=== PATIENT | female | born 1950 | race Hispanic/Latino ===

== ENCOUNTER 2020-01-23 12:01 | Emergency (ER) | payer OTHER ==
[2020-01-23] MEDS ORDERED: ONDANSETRON HCL 4 MG/2 ML VIAL ONE (13:16)
[2020-01-23] MEDS ORDERED: MORPHINE SULFATE 4 MG/1ML SYG ONE (13:17)
== END 2020-01-23 14:55 | disposition home or self-care (01) ==
LOC: EDH 12:01
DX: S00.03XA Contusion of scalp, initial encounter (principal); M54.2 Cervicalgia; I10 Essential (primary) hypertension; K21.9 Gastro-esophageal reflux disease without esophagitis; J45.909 Unspecified asthma, uncomplicated; Z91.041 Radiographic dye allergy status; Z90.710 Acquired absence of both cervix and uterus; W01.0XXA Fall on same level from slipping, tripping and stumbling without subsequent striking against object, initial encounter; Y93.89 Activity, other specified; Y92.89 Other specified places as the place of occurrence of the external cause; Y99.8 Other external cause status
CPT/HCPCS: 70450; 72125; 93005; 96374; 96375; 99284; J2270; J2405

== ENCOUNTER 2022-04-09 08:31 | Day surgery (SDC) | payer MEDICARE, OTHER ==
[2022-04-03 13:17] LABS: BASOPHILS % (AUTO) 0.3 % (0.0-5.0); EOSINOPHILS % (AUTO) 0.4 % (0.0-8.0); HEMATOCRIT 37.8 % (36-48); MEAN CORPUSCULAR HEMOGLOBIN 30.3 pg (27.0-33.0); MEAN CORPUSCULAR VOLUME 94.5 fL (79-99); MONOCYTES % (AUTO) 8.2 % (3.0-13.0); NEUTROPHILS % (AUTO) 61.2 % (40.0-77.0); PLATELET COUNT (AUTO) 267 K/uL (130-400); RED CELL DISTRIBUTION WIDTH 12.9 % (11.0-15.5); WHITE BLOOD COUNT (AUTO) 14.2 K/uL (4.8-10.8)
[2022-04-03 13:28] LABS: CREATININE 1.3 mg/dL (0.5-1.5); POTASSIUM 4.9 mmol/L (3.5-5.1)
[2022-04-03 14:53] LABS: APPEARANCE,URINE Clear (CLEAR); BILIRUBIN,URINE Negative (NEGATIVE); COLOR,URINE Yellow (YELLOW); GLUCOSE, URINE (UA) Negative (NEGATIVE); KETONES,URINE Negative (NEGATIVE); LEUKOCYTE ESTERASE ,URINE Negative (NEGATIVE); NITRATE,URINE Negative (NEGATIVE); OCCULT BLOOD,URINE Negative (NEGATIVE); PROTEIN,URINE Negative (NEGATIVE); UROBILINOGEN,URINE 0.2 mg/dL (0.2-1.0)
[2022-04-08 10:06] VITALS: BP 140/71
[2022-04-09] VITALS (16 sets, daily range): BP systolic 150–171; BP diastolic 61–74
[~2022-04-09] VITALS: Ht 162.6 cm; Wt 95.3 kg
[~2022-04-09 08:31] MED LIST: BIOT5000 PO; BUDE10.7 IH; CHOL500045 PO; ESCI-8 PO; FLUT16H NASAL; GABA300C PO; HYDR100T27 PO; HYDR12.54 PO; LEVO25CA4 PO; LOSA50TA64 PO; MELA10TA3 PO; METO-409 PO; MONT-39 PO; NITR100C4 PO; OMEP20CA12 PO; ROSU10TA28 PO; TEZSPIRE INJ; TIZA4CAP8 PO; albuterol IH
[2022-04-09] MEDS ORDERED: 0.9%NACL 1000ML 1,000 ML IV ONE (09:31)
[2022-04-09] MEDS: CEFTRIAXONE 1G VIAL IVP ONE ×2 (09:32→11:30)
[2022-04-09] MEDS ORDERED: BOTULINUM TOXIN TYPE A 100 UNITS/VIAL INJ SCH (10:00)
[2022-04-09] MEDS ORDERED: ALBUTEROL INHALER 90MCG/INH IH ONE (11:05)
[2022-04-09] MEDS ORDERED: 0.9%NACL 10ML VIAL ONE (11:13)
[2022-04-09] MEDS ORDERED: SUCCINYLCHOLINE 200MG/10ML SYR ONE ×2 (11:22→11:23)
[2022-04-09] MEDS ORDERED: LIDOCAINE PF 100MG/5ML (2%) SYRINGE 5ML ONE ×2 (11:22→11:23)
[2022-04-09] MEDS ORDERED: MIDAZOLAM HCL 1 MG/ML 2ML VIAL ONE (11:22)
[2022-04-09] MEDS ORDERED: GLYCOPYRROLATE 1 MG/5 ML SYRINGE ONE (11:22)
[2022-04-09] MEDS ORDERED: NEOSTIGMINE 5MG/5ML SYR IV ONE (11:22)
[2022-04-09] MEDS ORDERED: ONDANSETRON 4MG INJ ONE (11:22)
[2022-04-09] MEDS ORDERED: DEXAMETHASONE SOD PHOSPHATE 10MG/ML 1ML VIAL ONE (11:22)
[2022-04-09] MEDS ORDERED: PROPOFOL 10 MG/ML 20ML VIAL IV ONE (11:22)
[2022-04-09] MEDS ORDERED: ROCURONIUM 10MG/1ML SYR 10 MG/ML ML ONE (11:23)
[2022-04-09] MEDS ORDERED: FENTANYL CITRATE PF 50 MCG/1 ML 2ML VIAL ONE (11:23)
[2022-04-09] MEDS ORDERED: ATROPINE 1MG SYG IVP ONE (11:43)
[2022-04-09] MEDS ORDERED: SUGAMMADEX SODIUM 200 MG/2 ML VIAL IV ONE (12:04)
== END 2022-04-09 13:50 | disposition home or self-care (01) ==
LOC: DAH 08:31
PROVIDERS: ATTEND Urology
DX: N39.41 Urge incontinence (principal); I10 Essential (primary) hypertension; E11.9 Type 2 diabetes mellitus without complications; K21.9 Gastro-esophageal reflux disease without esophagitis; J45.909 Unspecified asthma, uncomplicated; Z90.710 Acquired absence of both cervix and uterus; Z79.01 Long term (current) use of anticoagulants; Z79.899 Other long term (current) drug therapy; Z98.890 Other specified postprocedural states
CPT/HCPCS: 36415; 52287; 71045; 80048; 81003; 82948; 85025; 87088; 87635; 93005; A4215; A4221; A4222; A4223; A4358; A4600; A4663; A6260; C1769; C9803; J0330 ×2; J0461; J0585; J1100; J2001 ×2; J2250; J2405; J2704; J2710; J3010; J3490; J7030; J7120

== ENCOUNTER → 2022-07-02 | Outpatient (CLI) | payer MEDICARE | END | disposition home or self-care (01) | LOC: SHCH 12:56 | PROVIDERS: ATTEND Internal Medicine Cardiovascular Disease | DX: I36.1 Nonrheumatic tricuspid (valve) insufficiency (principal); I51.7 Cardiomegaly | CPT/HCPCS: 93306 ==

== ENCOUNTER → 2022-07-14 | Outpatient (CLI) | payer MEDICARE, OTHER ==
[~2022-07-14] MED LIST changes: +REGADENOSON 0.4 MG/5 ML PF SYG IVP SCH
== END | disposition home or self-care (01) ==
LOC: SHCH 08:57
PROVIDERS: ATTEND Internal Medicine Cardiovascular Disease
DX: R06.02 Shortness of breath (principal); I10 Essential (primary) hypertension; E78.5 Hyperlipidemia, unspecified; Z79.899 Other long term (current) drug therapy
CPT/HCPCS: 78452; 96374; 93017; J2785; A9500 ×2

== ENCOUNTER 2022-11-12 07:06 | Day surgery (SDC) | payer MEDICARE, OTHER ==
[2022-11-09 11:33] LABS: APPEARANCE,URINE CLEAR (CLEAR); BILIRUBIN,URINE NEGATIVE (NEGATIVE); COLOR,URINE COLORLESS (YELLOW); GLUCOSE, URINE (UA) NEGATIVE (NEGATIVE); KETONES,URINE NEGATIVE (NEGATIVE); LEUKOCYTE ESTERASE ,URINE NEGATIVE Leu/uL (NEGATIVE); NITRATE,URINE NEGATIVE (NEGATIVE); OCCULT BLOOD,URINE NEGATIVE (NEGATIVE); PH,URINE 5.5 (5.0-8.0); PROTEIN,URINE NEGATIVE (NEGATIVE); UROBILINOGEN,URINE 0.2 mg/dL (0.2-1.0)
[2022-11-09 11:34] LABS: BASOPHILS % (AUTO) 0.3 % (0.0-5.0); EOSINOPHILS % (AUTO) 0.5 % (0.0-8.0); HEMATOCRIT 36.8 % (36-48); LYMPHOCYTES % (AUTO) 33.3 % (21.0-51.0); MEAN CORPUSCULAR HEMOGLOBIN 30.8 pg (27.0-33.0); MEAN CORPUSCULAR HGB CONC 33.2 g/dL (32.0-36.0); MEAN CORPUSCULAR VOLUME 92.9 fL (79-99); MONOCYTES % (AUTO) 9.2 % (3.0-13.0); NEUTROPHILS % (AUTO) 55.9 % (40.0-77.0); PLATELET COUNT (AUTO) 311 K/uL (130-400); RED BLOOD CELL COUNT(AUTO) 3.96 MIL/uL (4.00-5.50); RED CELL DISTRIBUTION WIDTH 12.9 % (11.0-15.5); WHITE BLOOD COUNT (AUTO) 10.7 K/uL (4.8-10.8)
[2022-11-09 11:42] LABS: CREATININE 1.6 mg/dL (0.5-1.5); POTASSIUM 3.9 mmol/L (3.5-5.1)
[2022-11-11 09:35] VITALS: BP 132/67
[2022-11-12] VITALS (18 sets, daily range): BP systolic 127–162; BP diastolic 63–77
[~2022-11-12] VITALS: Ht 162.6 cm; Wt 91.7 kg
[~2022-11-12 07:06] MED LIST changes: +BOTULINUM TOXIN TYPE A 100 UNITS/VIAL INJ SCH; +CEFTRIAXONE 1G VIAL IVPB SCH; +CETI-89 PO; -CHOL500045 PO; +CRANBERRY PO; +DEXL60CA3 PO; -FLUT16H NASAL; -GABA300C PO; +LOSA100T58 PO; -LOSA50TA64 PO; +MAGN400T40 PO; -OMEP20CA12 PO; -REGADENOSON 0.4 MG/5 ML PF SYG IVP SCH; -ROSU10TA28 PO; +ROSU20TA31 PO; -TEZSPIRE INJ; +VITAMIN D PO
[2022-11-12] MEDS ORDERED: 0.9%NACL 1000ML 1,000 ML IV ONE (07:26)
[2022-11-12] MEDS ORDERED: NEOSTIGMINE 5MG/5ML SYR IV ONE (08:43)
[2022-11-12] MEDS ORDERED: ONDANSETRON 4MG INJ ONE (08:43)
[2022-11-12] MEDS ORDERED: LIDOCAINE PF 100MG/5ML (2%) SYRINGE 5ML ONE ×2 (08:43→08:45)
[2022-11-12] MEDS ORDERED: PROPOFOL 10 MG/ML 20ML VIAL IV ONE (08:43)
[2022-11-12] MEDS ORDERED: GLYCOPYRROLATE 1 MG/5 ML SYRINGE ONE (08:43)
[2022-11-12] MEDS ORDERED: SUCCINYLCHOLINE 200MG/10ML SYR ONE ×2 (08:43→08:46)
[2022-11-12] MEDS ORDERED: ROCURONIUM 10MG/1ML SYR 10 MG/ML ML ONE (08:44)
[2022-11-12] MEDS ORDERED: MIDAZOLAM HCL 1 MG/ML 2ML VIAL ONE (08:44)
[2022-11-12] MEDS ORDERED: FENTANYL CITRATE PF 50 MCG/1 ML 2ML VIAL ONE ×2 (08:44→09:11)
== END 2022-11-12 11:40 | disposition home or self-care (01) ==
LOC: DAH 07:06
PROVIDERS: ATTEND Urology
DX: N39.46 Mixed incontinence (principal); Z20.822 Contact with and (suspected) exposure to COVID-19; I10 Essential (primary) hypertension; E11.9 Type 2 diabetes mellitus without complications; J45.909 Unspecified asthma, uncomplicated; E66.01 Morbid (severe) obesity due to excess calories; Z79.899 Other long term (current) drug therapy; Z91.041 Radiographic dye allergy status
CPT/HCPCS: 80048; 85025; 87088; 87426; 81003; 36415; 93005; 52287; 82948 ×2; A4663; J7120; J3010 ×2; J0330 ×2; J3490; J2710; J7030; J2001 ×2; J0696; J2250; J2704; J2405; J0585; A4358; A4215 ×2; A4223; A4222; A4221; A4600

== ENCOUNTER → 2023-04-12 | Outpatient (CLI) | payer MEDICARE, OTHER ==
[~2023-04-12] MED LIST changes: -BOTULINUM TOXIN TYPE A 100 UNITS/VIAL INJ SCH; -CEFTRIAXONE 1G VIAL IVPB SCH; -LOSA100T58 PO; +LOSA100T59 PO; -ROSU20TA31 PO; +ROSU20TA73 PO
== END | disposition home or self-care (01) ==
LOC: RAH 12:35
PROVIDERS: ATTEND Family Medicine
DX: M48.061 Spinal stenosis, lumbar region without neurogenic claudication (principal); M48.02 Spinal stenosis, cervical region; M47.22 Other spondylosis with radiculopathy, cervical region; M47.26 Other spondylosis with radiculopathy, lumbar region; M89.48 Other hypertrophic osteoarthropathy, other site
CPT/HCPCS: 72141; 72148

== ENCOUNTER → 2024-02-15 | Outpatient (CLI) | payer MEDICARE, OTHER ==
[~2024-02-15] MED LIST changes: +ALBU6.7H14 IH; +BENZ200C53 PO; -BIOT5000 PO; +CARB-37 PO; -CETI-89 PO; -ESCI-8 PO; -HYDR100T27 PO; -HYDR12.54 PO; -LOSA100T59 PO; +LOSA50TA64 PO; +MACR100 PO; -MAGN400T40 PO; -METO-409 PO; -MONT-39 PO; -NITR100C4 PO; -ROSU20TA73 PO; +TEZE210P SQ; +TRAM50TA4 PO; -VITAMIN D PO; -albuterol IH
[2024-02-15] MEDS: REGADENOSON 0.4 MG/5 ML PF SYG IVP ONE (11:53)
== END | disposition home or self-care (01) ==
LOC: SHCH 08:43
PROVIDERS: ATTEND Internal Medicine Cardiovascular Disease
DX: R07.9 Chest pain, unspecified (principal); R05.9 Cough, unspecified; R11.0 Nausea; R42 Dizziness and giddiness; R11.10 Vomiting, unspecified
CPT/HCPCS: 78452; 96374; 93017; J2785; A9500 ×2

== ENCOUNTER 2024-07-06 07:05 | Day surgery (SDC) | payer MEDICARE, OTHER ==
[2024-06-30 12:43] LABS: BASOPHILS # (AUTO) 0.02 K/uL (0.00-0.20); BASOPHILS % (AUTO) 0.2 % (0.0-5.0); EOSINOPHILS # (AUTO) 0.03 K/uL (0.00-0.70); EOSINOPHILS % (AUTO) 0.2 % (0.0-8.0); HEMATOCRIT 38.7 % (36-48); IMMATURE GRANULOCYTE ABSOLUTE 0.05 K/uL (0-1); LYMPHOCYTES # (AUTO) 3.7 K/uL (1.0-4.8); LYMPHOCYTES % (AUTO) 28.5 % (21.0-51.0); MEAN CORPUSCULAR HEMOGLOBIN 30.6 pg (27.0-33.0); MEAN CORPUSCULAR HGB CONC 34.1 g/dL (32.0-36.0); MEAN CORPUSCULAR VOLUME 89.8 fL (79-99); MONOCYTES # (AUTO) 1.1 K/uL (0.1-1.0); MONOCYTES % (AUTO) 8.1 % (3.0-13.0); NEUTROPHILS # (AUTO) 8.2 K/uL (1.8-7.7); NEUTROPHILS % (AUTO) 62.6 % (40.0-77.0); PLATELET COUNT (AUTO) 289 K/uL (130-400); RED BLOOD CELL COUNT(AUTO) 4.31 MIL/uL (4.00-5.50); RED CELL DISTRIBUTION WIDTH 13.2 % (11.0-15.5); WHITE BLOOD COUNT (AUTO) 13.1 K/uL (4.8-10.8)
[2024-06-30 12:48] VITALS: BP 137/82; PULSE 64; RESP 18; TEMP 98.2
[2024-06-30 12:50] LABS: CREATININE 1.3 mg/dL (0.5-1.0); POTASSIUM 3.3 mmol/L (3.5-5.1)
[2024-06-30 12:59] LABS: APPEARANCE,URINE CLEAR (CLEAR); BILIRUBIN,URINE NEGATIVE (NEGATIVE); COLOR,URINE LIGHT-YELLOW (YELLOW); GLUCOSE, URINE (UA) NEGATIVE (NEGATIVE); KETONES,URINE NEGATIVE (NEGATIVE); LEUKOCYTE ESTERASE ,URINE NEGATIVE Leu/uL (NEGATIVE); NITRATE,URINE NEGATIVE (NEGATIVE); PROTEIN,URINE NEGATIVE (NEGATIVE); UROBILINOGEN,URINE 0.2 mg/dL (0.2-1.0)
[2024-06-30 13:01] LABS: ADD UA MICROSCOPIC YES
[2024-06-30 13:07] LABS: MUCUS,URINE RARE LPF (None Seen); SQUAMOUS EPITHELIAL CELL,UR RARE /HPF (0-2); TRANSITIONAL EPI CELLS,URINE RARE /HPF (None Seen)
[~2024-07-06] VITALS: Ht 162.6 cm; Wt 84.8 kg
[2024-07-06] VITALS (15 sets, daily range): BP systolic 100–169; BP diastolic 52–70; PULSE 50–68; RESP 15–18; TEMP 97.2–97.7
[~2024-07-06 07:05] MED LIST changes: -BENZ200C53 PO; +CETI-89 PO; -CRANBERRY PO; +ESCI-8 PO; +FLUT16H NASAL; +HYDR100T15 PO; +HYDR25TA PO; -LOSA50TA64 PO; -MACR100 PO; +MAGN500C4 PO; +METO-409 PO; +MONT-39 PO; +ROPI0.2535 PO; +ROSU20TA73 PO; +TIRZ2.5P SQ; -TIZA4CAP8 PO; -TRAM50TA4 PO
[2024-07-06] MEDS: cefTRIAXone 1G VIAL ONE (08:42)
[2024-07-06] MEDS: 0.9%NACL 1000ML 1,000 ML IV ONE (08:42)
[2024-07-06] MEDS ORDERED: SCOPOLAMINE HYDROBROMIDE 1 EACH ADH..PATCH TD ONE (08:49)
[2024-07-06] MEDS ORDERED: dexaMETHasone SOD PHOSPHATE 10MG/ML 1ML VIAL ONE (08:51)
[2024-07-06] MEDS ORDERED: LIDOCAINE HCL MPF 1% 5ML VIAL ONE (08:51)
[2024-07-06] MEDS ORDERED: MIDAZOLAM HCL 1 MG/ML 2ML VIAL ONE (08:52)
[2024-07-06] MEDS ORDERED: ondanSETRON 4MG INJ ONE (08:52)
[2024-07-06] MEDS ORDERED: proPOFol 10 MG/ML 20ML VIAL IV ONE (08:52)
[2024-07-06] MEDS ORDERED: rocuRONium bROMide 10MG/1ML 5ML VL ONE (08:52)
[2024-07-06] MEDS ORDERED: FENTanyl CITRate PF 50 MCG/1 ML 2ML VIAL ONE (08:52)
[2024-07-06] MEDS: BOTULINUM TOXIN TYPE A 100 UNITS/VIAL INJ ONE (09:16)
[2024-07-06] MEDS ORDERED: NEOSTIGMINE METHYLSULFATE 1MG/ML IV ONE (09:19)
[2024-07-06] MEDS ORDERED: GLYCOPYRROLATE 0.2 MG/ML 5 ML VIAL ONE (09:19)
[2024-07-06] MEDS ORDERED: SUGAMMADEX SODIUM 200 MG/2 ML VIAL IV ONE (09:37)
== END 2024-07-06 11:07 | disposition home or self-care (01) ==
LOC: DAH 07:05
PROVIDERS: ATTEND Urology
DX: N39.46 Mixed incontinence (principal); I10 Essential (primary) hypertension; E11.9 Type 2 diabetes mellitus without complications; K21.9 Gastro-esophageal reflux disease without esophagitis; J45.909 Unspecified asthma, uncomplicated; Z88.6 Allergy status to analgesic agent; Z88.8 Allergy status to other drugs, medicaments and biological substances
CPT/HCPCS: 36415; 71045; 80048; 81001; 82948; 85025; 87086; 93005; C1758; J0585; J0696; J1100; J2250; J2405; J2704; J2710; J3010; J3490; J7030; A4215; A4221; A4222; A4223; A4248; A4358; A4600; A4663; A6260

== ENCOUNTER → 2025-05-29 | Outpatient (CLI) | payer MEDICARE, OTHER ==
[~2025-05-29] MED LIST changes: -LEVO25CA4 PO; +LEVO25CA5 PO; -ROSU20TA73 PO; +ROSU20TA98 PO
--- NOTE | 2025-05-30 10:20 | HMCIMG ---
EXAM: MR Cervical Spine Without Intravenous Contrast. CLINICAL HISTORY: Pain. TECHNIQUE: Magnetic resonance images of the cervical spine in multiple planes. CONTRAST: None. COMPARISON: MRI dated 04/12/23. FINDINGS: The imaged posterior fossa is unremarkable. The craniocervical junction is intact. Normal lordotic curvature. Flowing ossifications noted anterior to the cervical spine, likely diffuse idiopathic skeletal hyperostosis. Multilevel spondylosis is evident by marginal osteophytes and facet joint arthropathy. Multilevel disc desiccation noted. Acute fractures of the C4, C5, and C6 vertebral bodies cause approximately 30-40% height loss. Acute fracture through the right pedicle and lamina of the C6 vertebra. Mild collection at the C5-C6 intervertebral disc space anteriorly. The cervical cord is in an anatomic location. No abnormal signal involves the cord. No extra-axial masses. Mild edema noted in the posterior paraspinal muscles. Level by level, disease is present as follows: C1-C2: Mild osteoarthritis. C2-C3: No disc bulge or herniation. No neural foraminal, lateral recess, or spinal canal stenosis. C3-C4: 2 mm disc osteophyte complex bulge and facet joint arthropathy causing mild indentation on the anterior thecal sac and mild bilateral foraminal narrowing. No lateral recess stenosis. C4-C5: 2 mm disc osteophyte complex bulge causing mild indentation on the anterior thecal sac. No neural foraminal or lateral recess stenosis. C5-C6: 2 mm disc osteophyte complex bulge causing mild indentation on the anterior thecal sac. No neural foraminal or lateral recess stenosis. C6-C7: No disc bulge or herniation. No neural foraminal, lateral recess, or spinal canal stenosis. C7-T1: No disc bulge or herniation. No neural foraminal, lateral recess, or spinal canal stenosis. IMPRESSION: Acute fractures of the C4, C5, and C6 vertebral bodies cause approximately 30-40% height loss. Acute fracture through the right pedicle and lamina of the C6 vertebra. New finding. Mild collection at the C5-C6 intervertebral disc space anteriorly. Possibly hematoma versus effusion. New finding. Flowing ossifications anterior to the cervical spine, likely diffuse idiopathic skeletal hyperostosis. Mild to moderate multilevel spondylosis. Stable. Mild osteoarthritis at the C1-C2 level. Stable. Mild indentation on the anterior thecal sac and mild bilateral foraminal narrowing at the C3-C4 level. Stable. Mild indentation on the anterior thecal sac at the C4-C5 and C5-C6 levels. Stable. /[place]
--- NOTE | 2025-05-30 10:20 | HMCIMG ---
EXAM: MR Thoracic Spine Without Intravenous Contrast. CLINICAL HISTORY: Pain. TECHNIQUE: Magnetic resonance images of the thoracic spine in multiple planes. CONTRAST: None. COMPARISON: None. FINDINGS: The cervicothoracic and thoracolumbar junction is intact. No acute fracture. Exaggerated thoracic kyphosis. Flowing ossifications noted anterior to the thoracic spine, likely diffuse idiopathic skeletal hyperostosis. Multilevel spondylosis is evident by marginal osteophytes. Multilevel disc desiccation noted. Normal vertebral body and disc heights. Normal marrow signal of the vertebrae. The thoracic cord is in an anatomic location without abnormal signals. No abnormal extra-axial masses are present. The prevertebral and paravertebral soft tissues are within normal limits. [id number] findings are as follows: C7-T1: No disc bulge or herniation. No neural foraminal, lateral recess, or spinal canal stenosis. T1-T2: No disc bulge or herniation. No neural foraminal, lateral recess, or spinal canal stenosis. T2-T3: No disc bulge or herniation. No neural foraminal, lateral recess, or spinal canal stenosis. T3-T4: No disc bulge or herniation. No neural foraminal, lateral recess, or spinal canal stenosis. T4-T5: No disc bulge or herniation. No neural foraminal, lateral recess, or spinal canal stenosis. T5-T6: No disc bulge or herniation. No neural foraminal, lateral recess, or spinal canal stenosis. T6-T7: No disc bulge or herniation. No neural foraminal, lateral recess, or spinal canal stenosis. T7-T8: No disc bulge or herniation. No neural foraminal, lateral recess, or spinal canal stenosis. T8-T9: No disc bulge or herniation. No neural foraminal, lateral recess, or spinal canal stenosis. T9-T10: No disc bulge or herniation. No neural foraminal, lateral recess, or spinal canal stenosis. T10-T11: No disc bulge or herniation. No neural foraminal, lateral recess, or spinal canal stenosis. T11-T12: No disc bulge or herniation. No neural foraminal, lateral recess, or spinal canal stenosis. T12-L1: 2 mm right predominant disc osteophyte complex bulge causing mild indentation on the anterior thecal sac. No neural foraminal or lateral recess stenosis. IMPRESSION: No acute fracture. Exaggerated thoracic kyphosis. Flowing ossifications anterior to the thoracic spine, likely diffuse idiopathic skeletal hyperostosis. Mild multilevel spondylosis. Mild indentation on the anterior thecal sac at the T12-L1 level. /[place]
--- NOTE | 2025-05-30 10:21 | HMCIMG ---
EXAM: MR Lumbar Spine Without Intravenous Contrast. CLINICAL HISTORY: Lumbago with right-sided sciatica. TECHNIQUE: Magnetic resonance images of the lumbar spine in multiple planes. CONTRAST: None. COMPARISON: MRI dated 04/12/23. FINDINGS: For this examination, spinal levels were labeled assuming five [id number], lumbar-type vertebrae, with the inferior labeled L5. No acute fracture. Exaggerated lumbar lordosis. Multilevel spondylosis is evident by marginal osteophytes and facet joint arthropathy. Multilevel disc desiccation noted. Normal vertebral body and disc heights. Normal marrow signal of the vertebrae. Conus medullaris terminates at the L1 level. No abnormal epidural masses. Mild subcutaneous edema in the lower back. Moderate atrophy of the posterior paraspinal muscles. Individual spinal levels are described as follows: T12-L1: 2 mm right predominant disc osteophyte complex bulge causing mild indentation on the anterior thecal sac. No neural foraminal or lateral recess stenosis. L1-L2: No disc bulge or herniation. No neural foraminal, lateral recess, or spinal canal stenosis. L2-L3: 2 mm disc osteophyte complex bulge causing mild indentation on the anterior thecal sac. No neural foraminal or lateral recess stenosis. L3-L4: 3 mm disc osteophyte complex bulge and facet joint arthropathy causing mild indentation on the anterior thecal sac and mild bilateral foraminal narrowing. No lateral recess stenosis. L4-L5: 4 mm right predominant disc osteophyte complex bulge causing mild right foraminal narrowing. No lateral recess or spinal canal stenosis. L5-S1: 2 mm disc osteophyte complex bulge, ligamentum flavum thickening, and facet joint arthropathy causing mild indentation on the thecal sac, mild bilateral lateral recess narrowing with abutment of the traversing bilateral S1 nerve roots, and mild bilateral foraminal narrowing. IMPRESSION: No acute fracture. Exaggerated lumbar lordosis. Mild multilevel spondylosis. Mild indentation on the anterior thecal sac at the T12-L1 and L2-L3 levels. Mild indentation on the anterior thecal sac and mild bilateral foraminal narrowing at the L3-L4 level. Mild right foraminal narrowing at the L4-L5 level. Mild indentation on the thecal sac, mild bilateral lateral recess narrowing with abutment of the traversing bilateral S1 nerve roots, and mild bilateral foraminal narrowing at the L5-S1 level. No significant interval changes. /[place]
== END | disposition home or self-care (01) ==
LOC: RAH 13:18
PROVIDERS: ATTEND Family Medicine
DX: S12.501D Unspecified nondisplaced fracture of sixth cervical vertebra, subsequent encounter for fracture with routine healing (principal); S12.300D Unspecified displaced fracture of fourth cervical vertebra, subsequent encounter for fracture with routine healing; S12.400D Unspecified displaced fracture of fifth cervical vertebra, subsequent encounter for fracture with routine healing; M51.35 Other intervertebral disc degeneration, thoracolumbar region; M51.16 Intervertebral disc disorders with radiculopathy, lumbar region; M51.379 Other intervertebral disc degeneration, lumbosacral region without mention of lumbar back pain or lower extremity pain; M50.31 Other cervical disc degeneration, high cervical region; M50.321 Other cervical disc degeneration at C4-C5 level; M50.322 Other cervical disc degeneration at C5-C6 level; M47.815 Spondylosis without myelopathy or radiculopathy, thoracolumbar region; M47.813 Spondylosis without myelopathy or radiculopathy, cervicothoracic region; M40.204 Unspecified kyphosis, thoracic region; M48.02 Spinal stenosis, cervical region; M48.07 Spinal stenosis, lumbosacral region; M40.56 Lordosis, unspecified, lumbar region; M25.78 Osteophyte, vertebrae; R60.0 Localized edema; W19.XXXD Unspecified fall, subsequent encounter; X58.XXXD Exposure to other specified factors, subsequent encounter
CPT/HCPCS: 72141; 72146; 72148